=== PATIENT | male | born 1945 | race Caucasian/White ===

== ENCOUNTER 2017-03-01 19:46 | Emergency (ER) | payer MEDICARE ==
[~2017-03-01] VITALS: Ht 170.2 cm; Wt 77.4 kg
[2017-03-01 19:49] VITALS: BP 158/95
[2017-03-01] MEDS ORDERED: MAALOX/HYOSCYAMINE/LIDOCAINE 45 ML BOTTLE PO ONE (20:00)
[2017-03-01] MEDS ORDERED: ONDANSETRON 2MG/ML, 2ML IVPush ONE (20:00)
[2017-03-01] MEDS ORDERED: SODIUM CHLORIDE FLUSH 10ML SYR IVF ONE (20:00)
[2017-03-01] MEDS ORDERED: SODIUM CHLORIDE 0.9% 1,000ML IVBOLUS ONE (20:00)
[2017-03-01] MEDS ORDERED: FAMOTIDINE 20 MG/2 ML IVP ONE (20:00)
[2017-03-01 20:13] LABS: HEMOGLOBIN 16.9 g/dL (13.7-18.0)
[2017-03-01 20:26] LABS: ASPARTATE AMINO TRANSFERASE 27 U/L (15-37); BLOOD UREA NITROGEN 11 mg/dL (7-18)
[2017-03-01] MEDS ORDERED: OMNIPAQUE 350 MG/ML, 100ML BOTTLE ONE (22:29)
[2017-03-01] MEDS ORDERED: morphine SULFATE 10 MG/ML, 1ML IVPush ONE (22:30)
[2017-03-01] MEDS ORDERED: FAMOTIDINE 20 MG/2 ML ONE (23:14)
[2017-03-01] MEDS ORDERED: ONDANSETRON 2MG/ML, 2ML ONE (23:14)
[2017-03-01] MEDS ORDERED: MORPHINE SULFATE 4 MG/ML, 1ML ONE (23:14)
[2017-03-02] MEDS ORDERED: ONDANSETRON 2MG/ML, 2ML IVPush ONE (01:00)
== END 2017-03-02 01:00 | disposition home or self-care (01) ==
LOC: ED 22:32
DX: E86.0 Dehydration (principal); R11.2 Nausea with vomiting, unspecified
CPT/HCPCS: 36415; 74177; 80053; 83690; 85025; 96361; 96374; 96375; 96376; 99285; J2270; J2405; J7030; Q9967; S0028